=== PATIENT | female | born 1970 | race African-American/Black ===

== ENCOUNTER 2018-09-19 12:14 | Emergency (ER) | payer MEDICAID ==
[~2018-09-19] VITALS: Ht 160 cm; Wt 91.6 kg
[~2018-09-19 12:14] MED LIST: ALPR-229 PO; AMIT25TA9; AMLO5TAB13; BLAC160C PO; CARI350T22; CLON0.2T12; HYDR-2595; METO-159; OMEP20TA44; ONDA-101 SL; PRAV20TA3; SUMA50TA2 PO; ZOLP5TAB5
[2018-09-19] MEDS ORDERED: MORPHINE SULFATE 4 MG/ML SYR/VIAL IV ONE (12:45)
[2018-09-19] MEDS ORDERED: SODIUM CHLORIDE 0.9% 1,000 ML IV ONE ×2 (12:45)
[2018-09-19] MEDS ORDERED: ONDANSETRON HCL 4 MG/2 ML VIAL IV ONE (12:45)
[2018-09-19] MEDS ORDERED: cefTRIAXone 1GM/50ML D5W 50 ML IV ONE (13:00)
[2018-09-19 13:34] LABS: Basophils # (auto) 0.2 uL; Basophils % (auto) 0.8 % (0.0-2.0); Eosinophils # (auto) 0 uL; Eosinophils % (auto) 0.2 % (0.0-7.0); Hematocrit 40.8 % (36.0-46.0); Hemoglobin 13.7 g/dL (12.2-16.2); Lymphocytes # (auto) 2.5 uL; Mean Corpuscular Hemoglobin 31.8 pg (28.0-32.0); Mean Corpuscular Hgb Conc. 33.5 g/dL (32.0-36.0); Mean Corpuscular Volume 95.1 fL (80.0-100.0); Monocytes # (auto) 1.1 uL; Monocytes % (auto) 5.6 % (0.0-12.0); Neutrophils # (auto) 15.6 uL; Neutrophils % (auto) 80.4 % (37.0-80.0); Platelet Count (auto) 295 10^3/uL (140-450); Red Blood Cells 4.29 10^6/uL (4.0-5.20); White Blood Cell 19.4 10^3/uL (4.4-10.8)
[2018-09-19 13:39] LABS: Albumin 3.5 g/dL (3.4-5.0); BUN/Creatinine Ratio 9.8; Calcium 8.5 mg/dL (8.5-10.1); Potassium 4.2 mmol/L (3.5-5.1)
[2018-09-19 13:41] LABS: Bilirubin, Total 0.5 mg/dL (0.2-1.0); Total Protein 7.7 g/dL (6.4-8.2)
[2018-09-19] MEDS ORDERED: HALOPERIDOL LACTATE 5 MG/ML INJ VIAL ONE (14:15)
[2018-09-19] MEDS ORDERED: HALOPERIDOL LACTATE 5 MG/ML INJ VIAL IV ONE (14:15)
[2018-09-19 14:39] LABS: Urine Bacteria NONE SEEN /hpf (None Seen); Urine Blood Negative /uL (Negative); Urine Mucus FEW (None Seen); Urine Specific Gravity 1.015 (1.001-1.035); Urine WBC 1 /hpf (0 - 5)
[2018-09-19] MEDS ORDERED: LABETALOL HCL 5 MG/ML ML 20ML VIAL IV ONE (15:15)
[2018-09-19 15:33] VITALS: BP 156/100
== END 2018-09-19 15:36 | disposition home or self-care (01) ==
LOC: ER 12:14
DX: K52.9 Noninfective gastroenteritis and colitis, unspecified (principal); K21.9 Gastro-esophageal reflux disease without esophagitis; I10 Essential (primary) hypertension; Z88.8 Allergy status to other drugs, medicaments and biological substances; Z79.899 Other long term (current) drug therapy
CPT/HCPCS: 36415; 74176; 80053; 81001; 85025; 96365; 96375; 99285; J0696; J1630; J2270; J2405

== ENCOUNTER → 2021-08-27 | Outpatient (CLI) | payer MEDICAID ==
[~2021-08-27] MED LIST changes: -ALPR-229 PO; +ALPR2TAB6 PO; +AMIT25TA12; -AMIT25TA9; +AMLO-489; -AMLO5TAB13
== END | disposition home or self-care (01) ==
LOC: LAB 07:29 → EDSTATUS 09-17 07:00
PROVIDERS: ATTEND Orthopaedic Surgery Sports Medicine
DX: Z01.818 Encounter for other preprocedural examination (principal); M17.11 Unilateral primary osteoarthritis, right knee; M87.051 Idiopathic aseptic necrosis of right femur; Z82.49 Family history of ischemic heart disease and other diseases of the circulatory system; Z83.3 Family history of diabetes mellitus; Z80.8 Family history of malignant neoplasm of other organs or systems; Z82.5 Family history of asthma and other chronic lower respiratory diseases